=== PATIENT | female | born 1970 | race Caucasian/White ===

== ENCOUNTER 2017-01-18 19:09 | Emergency (ER) | payer BC ==
[2017-01-18 20:48] LABS: HEMOGLOBIN 14.4 gm/dl (12.3-15.3); RED BLOOD COUNT 4.87 M/UL (4.00-5.10); WHITE BLOOD COUNT 10.2 K/UL (4.5-11.0)
[2017-01-18 21:04] LABS: BUN/CREATININE RATIO 18 (0-10)
== END 2017-01-18 22:15 | disposition home or self-care (01) ==
LOC: ER1 19:09
PROVIDERS: Emergency Medicine
DX: N93.9 Abnormal uterine and vaginal bleeding, unspecified (principal); Z88.2 Allergy status to sulfonamides; Z88.1 Allergy status to other antibiotic agents
CPT/HCPCS: 36415; 80053; 85025; 86850; 86900; 86901; 99284; J7030

== ENCOUNTER 2017-01-19 11:21 | Emergency (ER) | payer BC ==
[2017-01-19 12:55] LABS: BUN/CREATININE RATIO 19 (0-10)
[2017-01-19 13:08] LABS: WHITE BLOOD COUNT 11.8 K/UL (4.5-11.0)
[2017-01-19 13:09] LABS: HEMOGLOBIN 11.6 gm/dl (12.3-15.3); RED BLOOD COUNT 3.99 M/UL (4.00-5.10)
== END 2017-01-19 14:28 | disposition home or self-care (01) ==
LOC: ER1 11:21
PROVIDERS: Physician Assistant
DX: N93.9 Abnormal uterine and vaginal bleeding, unspecified (principal); R42 Dizziness and giddiness; R11.0 Nausea; Z88.2 Allergy status to sulfonamides; Z88.1 Allergy status to other antibiotic agents
CPT/HCPCS: 36415; 80053; 85025; 85610; 85730; 99284; J7030

== ENCOUNTER → 2021-01-26 | Outpatient (CLI) | payer BC, OTHER | LOC: SLEEP 15:39 | DX: R06.83 Snoring (principal); G47.10 Hypersomnia, unspecified | CPT/HCPCS: 95810 ==